=== PATIENT | female | born 1990 | race Caucasian/White ===

== ENCOUNTER 2017-10-19 15:37 | Outpatient (CLI) | END 2017-10-19 19:25 | disposition home or self-care (01) ==

== ENCOUNTER 2017-10-23 14:27 | Outpatient (CLI) | END 2017-10-23 17:50 | disposition home or self-care (01) ==

== ENCOUNTER 2017-10-26 13:12 | Outpatient (CLI) | END 2017-10-26 18:01 | disposition home or self-care (01) ==

== ENCOUNTER 2017-10-30 12:48 | Outpatient (CLI) | END 2017-10-30 15:00 | disposition home or self-care (01) ==

== ENCOUNTER 2017-11-02 08:19 | Outpatient (CLI) | END 2017-11-02 11:56 | disposition home or self-care (01) ==

== ENCOUNTER 2017-11-09 08:14 | Outpatient (CLI) | END 2017-11-09 11:25 | disposition home or self-care (01) ==

== ENCOUNTER 2017-11-13 11:51 | Outpatient (CLI) | END 2017-11-13 22:18 | disposition home or self-care (01) ==